=== PATIENT | female | born 1955 | race Caucasian/White ===

== ENCOUNTER 2021-11-19 09:00 | Day surgery (SDC) | payer MEDICARE ==
[~2021-11-19] VITALS: Ht 171.4 cm; Wt 121.6 kg
--- NOTE | 2021-11-19 09:43 | NUR ---
0960 - Yumi BRIONES contacted Donovan Dobson CRNA about PT blood pressure 203/122; no new orders recieved, per report continue pre-op and re-check prior to procedure.
[2021-11-19] MEDS ORDERED: VITAMIN C (09:52)
[2021-11-19 10:15] VITALS: BP 194/120; PULSE 91; TEMP 97.8
[2021-11-19] MEDS ORDERED: VITAMIN B-12 (10:20)
[2021-11-19] MEDS ORDERED: VITAMIN B-6 (10:21)
[2021-11-19] MEDS ORDERED: SUPER B COMPLEX (10:21)
[2021-11-19] MEDS ORDERED: VITAMIN A (10:22)
[2021-11-19] MEDS ORDERED: NIACIN (10:22)
[2021-11-19] MEDS ORDERED: MULTIVITAMIN (10:22)
[2021-11-19] MEDS ORDERED: GINKO (10:22)
[2021-11-19] MEDS ORDERED: VITAMIN E (10:22)
[2021-11-19] MEDS ORDERED: BENADRYL (10:23)
[2021-11-19] MEDS ORDERED: MELATONIN PO (10:23)
[2021-11-19] MEDS ORDERED: HARD NAILS 2.51 CAP PO (10:24)
[2021-11-19] MEDS ORDERED: GARLIC (10:24)
[2021-11-19 11:05] VITALS: BP 124/86; PULSE 83; TEMP 97.5
[2021-11-19 11:20] VITALS: BP 125/79; PULSE 81
--- NOTE | 2021-11-19 11:23 | NUR ---
1105 - PT arrives and was settled by Tracy BRIONES; written report then obtained. 1120 - Vitals obtained. PT continues to snack and drink; PT states "my throat is a little sore"; RN told her that a mild sore throat is normal following this procedure, reccomended cool beverages. PT verbalized understanding. Call bradley remains within reach; PT denies nasuea. 1123 - was brought into the room by an RN.
[2021-11-19 11:35] VITALS: BP 112/75; PULSE 83
[2021-11-19 11:50] VITALS: BP 130/74; PULSE 79
--- NOTE | 2021-11-19 11:55 | NUR ---
1135 - PT has finished snack and drink. Vitals obtained. PT expressed desire to be discharged. Call bradley is within reach, PT is watching TV. 1140 - HEALTH CLUB ATTENDANT was contacted regarding PT current BP:112/75, for discharged orders due to outside of discharge range. HEALTH CLUB ATTENDANT was not reachable; anesthesia desk was called, however, no answer.
--- NOTE | 2021-11-19 12:00 | NUR ---
1150 - VSS. PT awaiting discharge. Call bradley remains within use/reach. 1155 - Tracy RN was consulted about PT blood pressure, who states since the PT is stable and her elevated BP was treated during the procedure, there is no need for BOOKB[employer] APPRENTICE discharge order. RN verbalized undestanding and is to proceed w/ dishcarge.
--- NOTE | 2021-11-19 12:10 | NUR ---
1200 - DC instructions and educational material reviewed w/ PT who verbalized understanding and signed the related paperwork. Questions answered to PT satisfaction. PT refused RN assistance changing into personal clothes; call bradley remains within reach if needed.
--- NOTE | 2021-11-19 12:12 | NUR ---
1205 - IV discontinued. Catheter tip intact and pressure bandage applied; no redness or swelling noted. PT denies pain at site.
--- NOTE | 2021-11-19 12:25 | NUR ---
1215 - PT ambulated to bathroom w/o difficulty, then back to bay [facility]; was brought in and the PT was dismissed from endo via wheelchair by Cecille BRIONES w/ . PT has DC packet and personal belongings; PT was transferred into the care of Spence who is driving private car.
== END 2021-11-19 12:25 | disposition home or self-care (01) ==
LOC: SDCO 09:00
DX: K44.9 Diaphragmatic hernia without obstruction or gangrene (principal); K22.5 Diverticulum of esophagus, acquired
CPT/HCPCS: J2704; J7030

== ENCOUNTER → 2021-12-03 | Outpatient (CLI) | payer MEDICARE ==
[~2021-12-03] MED LIST: BENADRYL; GARLIC; GINKO; HARD NAILS 2.51 CAP PO; MELATONIN PO; MULTIVITAMIN; NIACIN; SUPER B COMPLEX; VITAMIN A; VITAMIN B-12; VITAMIN B-6; VITAMIN C; VITAMIN E
== END ==
LOC: COL.RAD 10:59
DX: K22.5 Diverticulum of esophagus, acquired (principal); K44.9 Diaphragmatic hernia without obstruction or gangrene; M48.54XA Collapsed vertebra, not elsewhere classified, thoracic region, initial encounter for fracture